=== PATIENT | male | born 1975 | race Caucasian/White ===

== ENCOUNTER → 2018-03-11 | Outpatient (CLI) | payer MEDICAID ==
[~2018-03-11] MED LIST: GADOBUTROL 10 ML VIAL IVP ONE
== END ==
LOC: FIMAGING 15:24
PROVIDERS: ATTEND Psychiatry & Neurology Neurology
DX: R42 Dizziness and giddiness (principal); M45.9 Ankylosing spondylitis of unspecified sites in spine
CPT/HCPCS: A9585

== ENCOUNTER 2018-03-31 20:35 | Emergency (ER) | payer MEDICAID ==
[2018-03-31 20:43] VITALS: BP 125/73
[2018-03-31] MEDS ORDERED: TDAP ADULT 0.5 ML INJ (BOOSTRIX) IM ONE (20:53)
--- NOTE | 2018-03-31 21:02 | EDPHY ---
H & P Time Seen by Provider: 03/31/18 20:52 HPI/ROS: CHIEF COMPLAINT: "I am here for tetanus update" HISTORY OF PRESENT ILLNESS: Patient is a 42-year-old male who presents emergency department to receive tetanus vaccination. The patient states he cut his right middle finger with a mary for 2 days ago. He will got about yesterday. He was discussing with his cayla. He thinks he has had his last tetanus update 5 years ago. He denies any significant pain or redness. He has had no fevers or chills. No other complaints. REVIEW OF SYSTEMS: Negative Past Medical/Surgical History: Denies Smoking Status: Never smoked Physical Exam: Vitals noted General Appearance: Alert and no distress. Head: Pupils equal. Normal. Respiratory: No respiratory distress. Cardiac: regular rate and rhythm. Extremities: Patient has a small laceration on the tip of his right middle finger. There is no active bleeding. Appears to be healing well. No erythema or warmth. Skin: No rashes or lesions. Neuro: Alert. Normal mood and affect. Constitutional: Initial Vital Signs Temperature (C) 36.5 C 03/31/18 20:39 Heart Rate 61 03/31/18 20:39 Respiratory Rate 18 03/31/18 20:39 Blood Pressure 125/73 H 03/31/18 20:39 O2 Sat (%) 97 03/31/18 20:39 O2 Delivery Mode Room Air Allergies/Adverse Reactions: No Known Allergies Allergy (Unverified 03/31/18 20:41) Home Medications: Medication Instructions Recorded Adalimumab 03/31/18 Medical Decision Making ED Course/Re-evaluation: In the emergency department I discussed vaccination with the patient. I answered all his questions. The patient does not need a laceration repair. The patient's finger is healing well. Patient's Tdap was updated Patient was given warnings prior to leaving. Differential Diagnosis: My differential includes but is not limited to laceration, abrasion, tetanus exposure, cellulitis Departure - Departure Disposition: Home, Routine, Self-Care Clinical Impression: Tetanus-diphtheria (Td) vaccination Finger laceration Qualifiers: Encounter type: initial encounter Finger: middle finger Damage to nail status: without damage Foreign body presence: without foreign body Laterality: right Qualified Code(s): S61.212A - Laceration without foreign body of right middle finger without damage to nail, initial encounter Condition: Good Instructions: Tetanus (ED), Tdap and Td Vaccines for Adults (ED) Additional Instructions: Return with increasing redness, pain, discharge or any other concerns with your finger. Referrals: RAMYA MEDINA [Primary Care Provider] - As per Instructions
== END 2018-03-31 21:32 | disposition home or self-care (01) ==
DX: S61.212A Laceration without foreign body of right middle finger without damage to nail, initial encounter (principal); Z23 Encounter for immunization; W26.9XXA Contact with unspecified sharp object(s), initial encounter; Y92.9 Unspecified place or not applicable; Y93.9 Activity, unspecified; Y99.9 Unspecified external cause status